=== PATIENT | female | born 1975 | race Caucasian/White ===

== ENCOUNTER 2018-12-29 08:20 | Day surgery (SDC) | payer OTHER | END 2018-12-29 15:05 | disposition home or self-care (01) | LOC: CIR.AMB 08:20 | DX: N84.0 Polyp of corpus uteri (principal) ==

== ENCOUNTER 2023-11-16 05:30 | Day surgery (SDC) | payer OTHER ==
[2023-11-11 08:57] LABS: HEMATOCRIT 36.5 % (36.0-45.00); HEMOGLOBIN 12.3 g/dL (12.0-15.00); MEAN CELL VOLUME 85.7 fL (80.00-100.00); MEAN CORPUSCULAR HGB CONC 33.8 g/dl (32.0-36.0); PLATELET COUNT 209 K/uL (150-450); RED BLOOD COUNT 4.26 M/uL (4.00-6.00); RED CELL DISTRIBUTION WIDTH 12.7 % (11.5-14.5)
[2023-11-11 09:14] LABS: INR 0.99; PARTIAL THROMBOPLASTIN TIME 30.2 SECONDS (22.0-34.0); PROTHROMBIN TIME 10.4 SECONDS (9.0-11.5)
[2023-11-11 09:23] LABS: ALBUMIN 3.9 gm/dL (3.4-5.0); BILIRUBIN TOTAL 0.42 mg/dL (0.3-1.2); CALCIUM 9.2 mg/dL (8.5-10.1); CREATININE SERUM 0.75 mg/dL (0.55-1.02); GFR 81.79; GLOBULINA 3.6 G/DL (2.4-3.5); POTASSIUM 3.87 mEq/L (3.5-5.1); TOTAL PROTEIN 7.5 gm/dL (6.4-8.2)
[2023-11-11 09:28] LABS: URINE APPEARANCE Clear; URINE BILIRRUBIN Negative (NEGATIVE); URINE BLOOD Negative; URINE COLOR Yellow; URINE GLUCOSE Negative (NEGATIVE); URINE LEUKOCYTE Trace; URINE NITRATE Negative; URINE PROTEIN Negative (NEGATIVE); URINE UROBILINOGEN 0.2 E.U./dl
[2023-11-11 09:32] LABS: URINE EPITHELIAL CELLS 2.9 uL (0.0-38.8); URINE WBC 2.9 uL (0.0-23.2)
[2023-11-11 10:01] LABS: URINE RBC 1.8 uL (0.0-20.8)
[2023-11-16] MEDS ORDERED: DEXAMETHASONE SODIUM PHOSPHATE 4 MG/ML VIAL ONE (11:02)
[2023-11-16] MEDS ORDERED: DEXAMETHASONE SODIUM PHOSPHATE 4 MG/ML VIAL IV ONE (12:15)
== END 2023-11-16 16:41 | disposition home or self-care (01) ==
LOC: CIR.AMB 05:30
PROVIDERS: Surgery; ATTEND Otolaryngology
DX: C73 Malignant neoplasm of thyroid gland (principal); Z88.0 Allergy status to penicillin; Z88.6 Allergy status to analgesic agent; Z20.822 Contact with and (suspected) exposure to COVID-19

== ENCOUNTER 2025-02-01 08:01 | Outpatient (CLI) | payer OTHER | END 2025-02-01 09:29 | disposition home or self-care (01) | LOC: TOM 08:01 | PROVIDERS: ATTEND Colon & Rectal Surgery | DX: Z12.11 Encounter for screening for malignant neoplasm of colon (principal) ==